=== PATIENT | female | born 1990 | race Two or more races ===

== ENCOUNTER → 2019-04-05 | Outpatient (CLI) | payer OTHER | END | disposition home or self-care (01) | LOC: PRENATAL 15:00 | DX: O35.3XX0 Maternal care for (suspected) damage to fetus from viral disease in mother, not applicable or unspecified (principal) ==

== ENCOUNTER 2019-08-23 06:53 | Inpatient (IN) | payer OTHER ==
[~2019-08-23] VITALS: Ht 154.9 cm; Wt 59.0 kg
[2019-08-23] MEDS ORDERED: PRENATAL TABLE1 EAC1 PO (07:31)
== END 2019-08-25 10:47 | disposition home or self-care (01) | DRG 807 ==
LOC: OB/GYN 06:53 → LDR 06:53 → OB/GYN 14:09
PROVIDERS: ADMIT Obstetrics & Gynecology
PROC: 10E0XZZ Delivery of Products of Conception, External Approach (ICD-10-PCS; principal; 2019-08-23)
PROC: 0HQ9XZZ Repair Perineum Skin, External Approach (ICD-10-PCS; 2019-08-23)
PROC: 4A1HXCZ Monitoring of Products of Conception, Cardiac Rate, External Approach (ICD-10-PCS; 2019-08-23)
DX: O70.0 First degree perineal laceration during delivery (principal); Z37.0 Single live birth; O99.824 Streptococcus B carrier state complicating childbirth; Z3A.39 39 weeks gestation of pregnancy